=== PATIENT | male | born 1985 | race Caucasian/White ===

== ENCOUNTER → 2017-10-06 | Outpatient (CLI) | payer OTHER ==
--- NOTE | 2017-10-06 19:38 | CT ---
EXAMINATION TYPE: CT brain wo/w con DATE OF EXAM: 10/06/2017 COMPARISON: CT brain April 17, 2016 HISTORY: Episodes of feeling disoriented x years. CT DLP: 2120.50 mGycm Automated Exposure Control for Dose Reduction was Utilized. TECHNIQUE: CT scan of the head is performed without and with IV Contrast, patient injected with 100 mL of Omnipaque 300. FINDINGS: Noncontrast images show no acute intracranial hemorrhage or midline shift. The ventricles and sulci are within normal limits in size. Burton-white matter differentiation is maintained. Postcon trast images show no suspicious enhancing intraparenchymal mass. The globes are intact and the visual ized sinuses are clear. Mastoid air cells show no suspicious opacification. IMPRESSION: No significant finding is seen to account for patient's symptoms.
== END | disposition home or self-care (01) ==
LOC: RADCTMAIN 18:57
PROVIDERS: ATTEND Family Medicine
DX: R55 Syncope and collapse (principal)
CPT/HCPCS: 70470; Q9967

== ENCOUNTER → 2018-12-23 | Outpatient (CLI) | payer OTHER ==
--- NOTE | 2018-12-24 09:14 | CT ---
EXAMINATION TYPE: CT scapula LT wo con DATE OF EXAM: 12/23/2018 COMPARISON: None HISTORY: Fracture of scapula. CT DLP: 476 mGycm Automated exposure control for dose reduction was used. FINDINGS: There is a fracture along the superior margin of the scapula. There appears to be a displaced linear fragment extending anterior to the upper margin of this ampulla within the soft tissues medial to the acromium. Visualized lung cabezas clear. There does appear to be a soft tissue edema. Visualized rib cage intact . Humerus is intact.. IMPRESSION: THERE IS A DISPLACED FRACTURE INVOLVING THE SUPERIOR MARGIN OF THE SCAPULA WITH A LINEAR BONY FRAGMEN T DISPLACED ANTERIOR TO THE UPPER MARGIN OF THE SCAPULA.
== END | disposition home or self-care (01) ==
LOC: RADCTMAIN 09:18
PROVIDERS: ATTEND Orthopaedic Surgery
DX: S42.102A Fracture of unspecified part of scapula, left shoulder, initial encounter for closed fracture (principal)

== ENCOUNTER 2020-03-20 15:18 | Emergency (ER) | payer OTHER ==
[2020-03-20 15:24] VITALS: BP 129/87; PULSE 74; RESP 16; TEMP 98.8
[2020-03-20] MEDS ORDERED: DIPH,PERTUS(ACELL)TETVAC-LF 0.5 ML VIAL IM ONE (15:55)
[2020-03-20] MEDS ORDERED: CEPHALEXIN 500 MG CAP PO STA (15:57)
[2020-03-20] MEDS ORDERED: LIDOCAINE 1% INJ 10MG/ML (20 ML MDV) SQ ONE (16:06)
--- NOTE | 2020-03-20 16:16 | ED ---
Wound/Laceration HPI - General Chief Complaint: Wound/Laceration Stated Complaint: [facility] R Arm Lac Time Seen by Provider: 03/20/20 15:31 Source: patient Mode of arrival: ambulatory Limitations: no limitations - History of Present Illness Initial Comments: Patient is a 34-year-old male presenting to emergency Department with complaints of a laceration on his right forearm. Patient states about 30 minutes prior to arrival, he was at work, when a piece of sheet metal "got away from him" and placed him on the right forearm. Patient denies being on blood thinners. Bleeding is controlled at this time with a bandage. Patient denies any dizziness, nausea or vomiting. He does not remember his last tetanus vaccine. There are no further complaints at this time. Upon arrival to the ER his vitals are stable. - Related Data Home Medications Medication Instructions Recorded Confirmed levETIRAcetam [Keppra] 750 mg PO BID 03/20/20 03/20/20 Previous Rx's Medication Instructions Recorded Cephalexin [Keflex] 500 mg PO BID 3 Days #6 cap 03/20/20 Allergies Allergy/AdvReac Type Severity Reaction Status Date / Time No Known Allergies Allergy Verified 03/20/20 16:19 Review of Systems ROS Statement: Those systems with pertinent positive or pertinent negative responses have been documented in the HPI. ROS Other: All systems not noted in ROS Statement are negative. Past Medical History Past Medical History: Seizure Disorder History of Any Multi-Drug Resistant Organisms: None Reported Past Surgical History: Orthopedic Surgery Additional Past Surgical History / Comment(s): RIGHT ANKLE 2004 Past Psychological History: No Psychological Hx Reported Smoking Status: Never smoker Past Alcohol Use History: Occasional Past Drug Use History: Marijuana General Exam - General Exam Comments Initial Comments: GENERAL: Well-appearing, well-nourished and in no acute distress. HEAD: Atraumatic, normocephalic. EYES: Pupils equal round and reactive to light, extraocular movements intact, sclera anicteric, conjunctiva are normal. ENT: TMs normal, nares patent, oropharynx clear without exudates. Moist mucous membranes. NECK: Normal range of motion, supple without lymphadenopathy or JVD. LUNGS: Breath sounds clear to auscultation bilaterally and equal. No wheezes rales or rhonchi. HEART: Regular rate and rhythm without murmurs, rubs or gallops. ABDOMEN: Soft, nontender, normoactive bowel sounds. No guarding, no rebound. No masses appreciated. : Deferred EXTREMITIES: Patient has full range of motion of his right fingers and forearm. He is neurovascular intact. No clubbing or cyanosis. NEUROLOGICAL: Normal speech, normal gait. PSYCH: Normal mood, normal affect. SKIN: Warm, Dry, normal turgor, no rashes. Patient has a C-shaped laceration, approximately 7 cm on his right forearm, dorsal aspect. Bleeding is controlled at this time. Limitations: no limitations Course Vital Signs 03/20/20 15:21 Temperature 98.8 F Pulse Rate 74 Respiratory 16 Rate Blood Pressure 129/87 O2 Sat by Pulse 99 Oximetry Procedures - Laceration Laceration #1 Consent Obtained: verbal consent Indication: laceration Site: upper extremity (Right forearm) Size (cm): 7 Description: flap Depth: simple, single layer Anesthetic Used: lidocaine 1% Anesthesia Technique: local infiltration Amount (mls): 9 Pre-repair: irrigated extensively Type of Sutures: nylon Size of Sutures: 4-0 Number of Sutures: 19 Technique: simple, interrupted Patient Tolerated Procedure: well Medical Decision Making - Medical Decision Making Patient is a 34-year-old male here with a 7 cm laceration to the right forearm. Patient's tetanus vaccine was updated today. He is also given dose of Keflex in the ER. Patient's wound was irrigated extensively, closed with 19, 4-0 sutures. Patient tolerated procedure well. Patient is stable for discharge. He will have sutures removed in 7-10 days. Patient will be continued on Keflex for 3 days. He is in agreement with this plan of care. He is stable for discharge. Return parameters were discussed with the patient he verbalizes understanding. Disposition Clinical Impression: Laceration of right forearm Disposition: HOME SELF-CARE Condition: Stable Instructions (If sedation given, give patient instructions): Care For Your Stitches (ED) Additional Instructions: Please return to the Emergency Department if symptoms worsen or any other concerns. Stitches need to be removed in 7-10 days. Keep area clean and dry. Cover while working. No swimming. Take antibiotic as prescribed. Prescriptions: Cephalexin [Keflex] 500 mg PO BID 3 Days #6 cap Is patient prescribed a controlled substance at d/c from ED?: No Referrals: None,Stated [Primary Care Provider] - 1-2 days
--- NOTE | 2020-03-20 16:25 | XR ---
EXAMINATION TYPE: XR forearm RT DATE OF EXAM: 03/20/2020 COMPARISON: NONE HISTORY: 34-year-old male with laceration from sheet metal to the middle of the forearm, pain TECHNIQUE: 2 views FINDINGS: There is soft tissue injury along the volar and radial aspect of the midforearm. No retained radiopaq ue foreign body. No underlying fracture. Wrist and elbow articulations grossly intact. No elbow joint effusion. IMPRESSION: Soft tissue injury along the radial and volar aspect of the mid forearm. No underlying acute osseous abnormality seen.
== END 2020-03-20 18:20 | disposition home or self-care (01) ==
LOC: EC 15:18
DX: S51.811A Laceration without foreign body of right forearm, initial encounter (principal); Z23 Encounter for immunization; G40.909 Epilepsy, unspecified, not intractable, without status epilepticus; Z79.899 Other long term (current) drug therapy; W26.8XXA Contact with other sharp object(s), not elsewhere classified, initial encounter; Y92.69 Other specified industrial and construction area as the place of occurrence of the external cause; Y99.0 Civilian activity done for income or pay
CPT/HCPCS: 73090; 90715; 99283; 12002; 90471; J2001

== ENCOUNTER → 2023-09-17 | Outpatient (CLI) | payer BC ==
--- NOTE | 2023-09-17 09:11 | US ---
EXAMINATION TYPE: US abdomen complete DATE OF EXAM: 09/17/2023 COMPARISON: NONE CLINICAL INDICATION: Male, 37 years old with history of R10.13 EPIGASTRIC PAIN; Abd pain with clots i n stool for over 1 year TECHNIQUE: Multiple sonographic images of the abdomen are obtained. FINDINGS: EXAM MEASUREMENTS: Liver Length: 16.8 cm Gallbladder Wall: 0.2 cm CBD: 0.5 cm Spleen: 11.8 cm Right Kidney: 10.9 x 5.4 x 4.5 cm Left Kidney: 11.9 x 4.5 x 6.0 cm Pancreas: wnl Liver: wnl Gallbladder: wnl Evidence for sonographic Garcia's sign: no CBD: wnl Spleen: wnl Right Kidney: wnl Left Kidney: wnl Upper IVC: wnl Abd Aorta: wnl IMPRESSION: 1. Mild hepatomegaly
== END | disposition home or self-care (01) ==
LOC: RADUSWWP 07:12
PROVIDERS: ATTEND Family Medicine
DX: R16.0 Hepatomegaly, not elsewhere classified (principal); R10.13 Epigastric pain
CPT/HCPCS: 76700